=== PATIENT | female | born 1935 | race Caucasian/White ===

== ENCOUNTER 2022-01-24 12:47 | Emergency (ER) | payer MEDICARE ==
[2022-01-24] MEDS ORDERED: Oxymetazoline HCl 0.05% ( 15 ML ) ONE (16:05)
== END 2022-01-24 16:50 | disposition home or self-care (01) ==
LOC: CSHERS 12:47
DX: R04.0 Epistaxis (principal); E78.5 Hyperlipidemia, unspecified; I10 Essential (primary) hypertension
CPT/HCPCS: 30903

== ENCOUNTER 2022-01-30 08:58 | Emergency (ER) | payer MEDICARE ==
[2022-01-30] MEDS ORDERED: Oxymetazoline HCl 0.05% ( 15 ML ) ONE (09:55)
[2022-01-30] MEDS ORDERED: traMADol HCl 50 MG TAB ONE (09:55)
[2022-01-30 10:22] LABS: #Monocytes 0.6 10x3/uL (0.0-1.1); #Neutrophils 5.5 10x3/uL (1.5-8.4); %Basophils 0.5 % (0.0-2.0); %Eosinophils 0.1 % (0.0-6.0); %Lymphocytes 16.4 % (18.0-47.0); %Monocytes 8.3 % (0.0-10.0); %Neutrophils 74.2 % (40.0-75.0); Hemoglobin 12.8 g/dL (12.0-15.5); Mean Corpuscular HGB CONC 32.6 g/dL (32.0-36.0); Mean Corpuscular Hemoglobin 29.4 pg (27.0-33.0); Mean Corpuscular Volume 90.1 fl (81.6-98.3); Mean Platelet Volume 9.4 fl (7.4-10.4); Platelet Count 273 10x3/uL (150-450); RBC Distribution Width 14.2 % (11.5-14.5); Red Blood Cell (RBC) Count 4.36 10x6/uL (3.90-5.03); White Blood Cell (WBC) Count 7.4 10x3/uL (3.5-10.5)
[2022-01-30 10:29] LABS: Prothrombin Time 10.6 sec (9.5-12.1)
[2022-01-30] MEDS ORDERED: ALPRAZolam 0.5 MG TAB ONE (11:34)
== END 2022-01-30 12:02 | disposition home or self-care (01) ==
LOC: CSHERS 08:58
DX: R04.0 Epistaxis (principal); E78.5 Hyperlipidemia, unspecified; I10 Essential (primary) hypertension
CPT/HCPCS: 36415; 85025; 85610; 85730; 86850; 86900; 86901; 99283

== ENCOUNTER 2022-02-10 15:26 | Emergency (ER) | payer MEDICARE ==
[2022-02-10 16:49] LABS: #Monocytes 0.8 10x3/uL (0.0-1.1); #Neutrophils 4.3 10x3/uL (1.5-8.4); %Basophils 0.6 % (0.0-2.0); %Eosinophils 0.6 % (0.0-6.0); %Lymphocytes 26.9 % (18.0-47.0); %Monocytes 10.7 % (0.0-10.0); %Neutrophils 59.9 % (40.0-75.0); Hemoglobin 11.8 g/dL (12.0-15.5); Mean Corpuscular HGB CONC 33.1 g/dL (32.0-36.0); Mean Corpuscular Hemoglobin 29.7 pg (27.0-33.0); Mean Corpuscular Volume 89.7 fl (81.6-98.3); Mean Platelet Volume 9.7 fl (7.4-10.4); Platelet Count 366 10x3/uL (150-450); RBC Distribution Width 13.8 % (11.5-14.5); Red Blood Cell (RBC) Count 3.97 10x6/uL (3.90-5.03); White Blood Cell (WBC) Count 7.1 10x3/uL (3.5-10.5)
[2022-02-10 17:07] LABS: Large Platelets SLIGHT
[2022-02-10 17:08] LABS: Platelet Morphology Comment Appears Adequate; RBC Morphology Normal
[2022-02-10 17:47] LABS: ALT (SGPT) 19 U/L (8-55); AST (SGOT) 20 U/L (5-34); Alkaline Phosphatase 82 U/L (40-110); Anion Gap 17 mmol/L (10-20); BUN (Urea Nitrogen) 19 mg/dL (9.8-20.1); Bilirubin, Total 0.1 mg/dL (0.2-1.2); Calc. Creatinine Clearance 0 mL/min (70-130); Calcium 10.1 mg/dL (7.8-10.44); Carbon Dioxide 24 mmol/L (23-31); Chloride 100 mmol/L (98-107); Estimated GFR 89; Globulin 3.1 g/dL (2.4-3.5); Glucose 151 mg/dL (83-110); Potassium 4.3 mmol/L (3.5-5.1); Protein, Total 7.1 g/dL (5.8-8.1); Sodium 137 mmol/L (136-145)
== END 2022-02-10 19:13 | disposition home or self-care (01) ==
LOC: CSHERS 15:26
DX: S22.32XA Fracture of one rib, left side, initial encounter for closed fracture (principal); S70.02XA Contusion of left hip, initial encounter; M25.512 Pain in left shoulder; I10 Essential (primary) hypertension; E78.5 Hyperlipidemia, unspecified; Z79.899 Other long term (current) drug therapy; W19.XXXA Unspecified fall, initial encounter
CPT/HCPCS: 71250; 72125; 74177; 80053; 83880; 84484; 85025; 93005

== ENCOUNTER 2023-01-09 07:58 | Emergency (ER) | payer MEDICARE ==
[2023-01-09 09:11] LABS: #Monocytes 1.3 10x3/uL (0.0-1.1); %Basophils 0.3 % (0.0-2.0); %Eosinophils 0.1 % (0.0-6.0); %Lymphocytes 17.2 % (18.0-47.0); %Monocytes 12.5 % (0.0-10.0); %Neutrophils 69.4 % (40.0-75.0); Hematocrit 40.5 % (34.9-44.5); Hemoglobin 12.7 g/dL (12.0-15.5); Mean Corpuscular HGB CONC 31.4 g/dL (32.0-36.0); Mean Corpuscular Hemoglobin 28.3 pg (27.0-33.0); Mean Corpuscular Volume 90.4 fl (81.6-98.3); Mean Platelet Volume 9.6 fl (7.4-10.4); Platelet Count 315 10x3/uL (150-450); RBC Distribution Width 14.7 % (11.5-14.5); Red Blood Cell (RBC) Count 4.48 10x6/uL (3.90-5.03)
[2023-01-09 09:44] LABS: ALT (SGPT) 18 U/L (8-55); AST (SGOT) 20 U/L (5-34); Albumin 4.2 g/dL (3.4-4.8); Alkaline Phosphatase 109 U/L (40-110); Anion Gap 17 mmol/L (10-20); BUN (Urea Nitrogen) 18 mg/dL (9.8-20.1); Bilirubin, Total 0.4 mg/dL (0.2-1.2); Calc. Creatinine Clearance 0 mL/min (70-130); Calcium 10.3 mg/dL (7.8-10.44); Carbon Dioxide 23 mmol/L (23-31); Chloride 102 mmol/L (98-107); Estimated GFR 85; Globulin 3.6 g/dL (2.4-3.5); Glucose 135 mg/dL (83-110); Lipase 7 U/L (8-78); Potassium 4.3 mmol/L (3.5-5.1); Protein, Total 7.8 g/dL (5.8-8.1); Sodium 138 mmol/L (136-145)
[2023-01-09 09:45] LABS: Troponin I 0.028 ng/mL (< 0.028)
[2023-01-09 11:01] LABS: Bilirubin Neg (Negative); Blood, Urine 150 (Negative); Clarity Cloudy (Clear); Glucose, Urine (Dipstick) Normal (Negative); Ketone, Urine Negative (Negative); Leukocyte 500 (Negative); Nitrite Positive (Negative); Protein, Urine (Dipstick) 100 mg/dl (Neg-Trace); Urobilinogen Normal mg/dL (Less than 2)
[2023-01-09 11:17] LABS: Bacteria/HPF 4+ HPF (None Seen); CAUTI Indications for Culture Alt mental st,lethar; Squamous Epithelial 0-3 HPF (0-3); WBC/HPF 21-50 HPF (0-3)
[2023-01-09 11:19] LABS: Urine Culture Reflex Yes Yes
[2023-01-09] MEDS ORDERED: cefTRIAXone (ROCEPHIN) 1 GM VIAL ONE (12:01)
[2023-01-09] MEDS ORDERED: Iopamidol 370 76% 100 ML VIAL ONE (13:43)
== END 2023-01-09 17:36 ==
LOC: CSHERS 07:58
DX: N39.0 Urinary tract infection, site not specified (principal); E78.5 Hyperlipidemia, unspecified; I10 Essential (primary) hypertension
CPT/HCPCS: 36415; 36416; 70450; 71045; 71275; 72125; 80053; 81001; 83690; 83880; 84443; 84484; 85025; 85379; 87040; 87077; 87086; 87186; 93005; J0696; Q9967

== ENCOUNTER 2024-05-18 11:15 | Emergency (ER) | payer MEDICARE, OTHER ==
[~2024-05-18 11:15] MED LIST: Iopamidol 370 76% 100 ML VIAL ONE
[2024-05-18 13:06] LABS: #Basophils 0.03 10x3/uL (0.0-0.2); #Eosinophils Less than 0.03 10x3/uL (0.0-0.5); #Monocytes 1.26 10x3/uL (0.0-1.1); #Neutrophils 6.96 10x3/uL (1.5-8.4); %Basophils 0.3 % (0.0-2.0); %Eosinophils 0.1 % (0.0-6.0); %Lymphocytes 16.1 % (18.0-47.0); %Monocytes 12.6 % (0.0-10.0); %Neutrophils 69.7 % (40.0-75.0); Hematocrit 34.3 % (34.9-44.5); Hemoglobin 10.7 g/dL (12.0-15.5); Mean Corpuscular HGB CONC 31.2 g/dL (32.0-36.0); Mean Corpuscular Hemoglobin 28.4 pg (27.0-33.0); Mean Platelet Volume 9.2 fL (7.4-10.4); Platelet Count 366 10x3/uL (150-450); RBC Distribution Width 14.6 % (11.5-14.5); Red Blood Cell (RBC) Count 3.77 10x6/uL (3.90-5.03); White Blood Cell (WBC) Count 9.99 10x3/uL (3.5-10.5)
[2024-05-18] MEDS ORDERED: Cefepime 2 GM VIAL ONE (13:16)
[2024-05-18] MEDS ORDERED: VANCOMYCIN 2 GRAM/400 ML BAG 2 GM in Premix 1 BAG IVPB SCH (13:45)
[2024-05-18 13:46] LABS: ALT (SGPT) 11 U/L (8-55); AST (SGOT) 12 U/L (5-34); Albumin 2.8 g/dL (3.4-4.8); Alkaline Phosphatase 71 U/L (40-110); Anion Gap 14 mmol/L (10-20); BUN (Urea Nitrogen) 14 mg/dL (9.8-20.1); Bilirubin, Total 0.3 mg/dL (0.2-1.2); Calc. Creatinine Clearance 0 mL/min (70-130); Calcium 9.1 mg/dL (7.8-10.44); Carbon Dioxide 25 mmol/L (23-31); Chloride 100 mmol/L (98-107); Estimated GFR 85; Globulin 3.1 g/dL (2.4-3.5); Glucose 155 mg/dL (83-110); Potassium 4.6 mmol/L (3.5-5.1); Protein, Total 5.9 g/dL (5.8-8.1); Sodium 134 mmol/L (136-145)
[2024-05-18] MEDS ORDERED: LevoFLOXacin 750 mg/D5W 150 ml Premix Bag ONE (13:48)
[2024-05-18 13:54] LABS: Bilirubin Neg (Negative); Blood, Urine 25 (Negative); Glucose, Urine (Dipstick) Normal (Negative); Ketone, Urine Negative (Negative); Leukocyte 500 (Negative); Nitrite Negative (Negative); Protein, Urine (Dipstick) 100 mg/dl (Neg-Trace); Urobilinogen Normal mg/dL (Less than 2)
[2024-05-18 15:09] LABS: Clarity Extra Turbid (Clear)
[2024-05-18 15:22] LABS: Bacteria/HPF 4+ HPF (None Seen); CAUTI Indications for Culture Pelvic or flank pain; Squamous Epithelial 0-3 HPF (0-3)
[2024-05-18 15:23] LABS: Mucous/LPF 2+ LPF (<2+); Triple Phosphate Crystal 2+ HPF (None Seen)
[2024-05-18 15:27] LABS: Urine Culture Reflex No No
== END 2024-05-18 18:35 | disposition home or self-care (01) ==
LOC: CSHERS 11:15
DX: R53.1 Weakness (principal); I10 Essential (primary) hypertension; E11.9 Type 2 diabetes mellitus without complications
CPT/HCPCS: 71045; 71275; 80053; 81001; 83605; 83880; 84484; 85025; 85379; 87040; 87077; 87086; 87186; 87428; 93005; J0692; J1956; J3370; Q9967; 36415; 96361; 96365; 96366; 96367; 96368

== ENCOUNTER 2025-04-09 16:18 | Emergency (ER) | payer MEDICARE | END 2025-04-09 19:39 | disposition home or self-care (01) | LOC: CSHERS 16:18 | DX: S09.90XA Unspecified injury of head, initial encounter (principal); I11.0 Hypertensive heart disease with heart failure; I50.9 Heart failure, unspecified; E11.9 Type 2 diabetes mellitus without complications; W22.8XXA Striking against or struck by other objects, initial encounter | CPT/HCPCS: 70450; 72125 ==